=== PATIENT | male | born 1970 | race African-American/Black ===

== ENCOUNTER 2016-07-24 09:03 | Emergency (ER) | payer OTHER ==
--- NOTE | 2016-07-24 09:46 | ER Document Report ---
HPI - HPI Pain Level: 4 Context: 46 yo male punched door 2 weeks ago. c/o persistant pain and swelling over 5th knuckle Associated Symptoms: None Exacerbated by: Movement Relieved by: Denies Similar symptoms previously: No Recently seen / treated by doctor: No - ROS Systems Reviewed and Negative: Yes All other systems reviewed and negative - CARDIOVASCULAR Cardiovascular: DENIES: Chest pain - DERM Skin Color: Normal Past Medical History - General Information source: Patient - Social History Smoking Status: Current Every Day Smoker Chew tobacco use (# tins/day): No Frequency of alcohol use: None Drug Abuse: None Lives with: Family Family History: Reviewed & Not Pertinent Patient has suicidal ideation: No Patient has homicidal ideation: No Endocrine Medical History: Denies: Hx Diabetes Mellitus Type 1, Hx Diabetes Mellitus Type 2 Renal/ Medical History: Reports: Hx Peritoneal Dialysis Skin Medical History: Denies Hx MRSA Infectious Medical History: Denies: Hx MRSA - Immunizations Hx Diphtheria, Pertussis, Tetanus Vaccination: Yes - unknown Vertical Provider Document - CONSTITUTIONAL Agree With Documented VS: Yes Exam Limitations: No Limitations General Appearance: WD/WN, No Apparent Distress - INFECTION CONTROL TRAVEL OUTSIDE OF THE [place] IN LAST 30 DAYS: No - HEENT HEENT: Atraumatic, PERRLA - NECK Neck: Normal Inspection, Supple - RESPIRATORY Respiratory: Breath Sounds Normal, No Respiratory Distress O2 Sat by Pulse Oximetry: 98 - CARDIOVASCULAR Cardiovascular: Regular Rate, Regular Rhythm - MUSCULOSKELETAL/EXTREMETIES Musculoskeletal/Extremeties: Tender - focal tenderness and edema over right 5th MCPJ - NEURO Level of Consciousness: Awake, Alert, Appropriate - DERM Integumentary: Warm, Dry Course - Vital Signs Vital signs: Temp Pulse Resp BP Pulse Ox 98.2 F 74 16 164/90 H 98 07/24/16 09:07 07/24/16 09:07 07/24/16 09:07 07/24/16 09:07 07/24/16 09:07 Procedures - Immobilization right hand Pre-Proc Neuro Vasc Exam: Normal Immobilizer type: Other - boxer's splint Performed by: PCT Post-Proc Neuro Vasc Exam: Normal Alignment checked and good: Yes Discharge - Discharge Clinical Impression: Boxers fracture Qualifiers: Encounter type: initial encounter Fracture type: closed Qualified Code(s): S62.309A - Unspecified fracture of unspecified metacarpal bone, initial encounter for closed fracture Condition: Stable Disposition: HOME, SELF-CARE Instructions: Fractured Fifth Metacarpal ([facility]), Splint Pending Casting ([facility]), Sling to be Used ([facility]), Ice & Elevation ([facility]), Oral Narcotic Medication ([facility]) Additional Instructions: You have a fractured bone in your hand You need to see an orthopedist for further evaluation and treatment Keep splint intact until seen by orthopedist Pain med as needed Prescriptions: Hydrocodone/Acetaminophen [Bronson 5-325 mg Tablet] 1 tab PO Q4 PRN #15 tablet PRN Reason: Severe Pain Forms: Elevated Blood Pressure, Return to Work Referrals: JAYNE COTTO MD [ACTIVE STAFF] - Follow up as needed
--- NOTE | 2016-07-24 10:46 | RADIOLOGY REPORT (SQ) ---
EXAM DESCRIPTION: HAND RIGHT 3 VIEWS COMPLETED DATE/TIME: 07/24/2016 10:04 am REASON FOR STUDY: punched wall, pain COMPARISON: None. EXAM PARAMETERS: NUMBER OF VIEWS: Three views. TECHNIQUE: AP, lateral and oblique radiographic images acquired of the right hand. LIMITATIONS: None. FINDINGS: MINERALIZATION: Normal. BONES: Oblique fracture of the distal 5th metacarpal. There does appear to be early periosteal react ion and callus formation. JOINTS: No effusions. SOFT TISSUES: No soft tissue swelling. No foreign body. OTHER: No other significant finding. IMPRESSION: FRACTURE OF THE 5TH METACARPAL WITH SIGNS OF HEALING. TECHNICAL DOCUMENTATION: JOB ID: [id number] [employer]- All Rights Reserved
[2016-07-24 11:05] VITALS: BP 148/80
== END 2016-07-24 11:03 | disposition home or self-care (01) ==
LOC: ER 09:03
PROC: 2W3EX1Z Immobilization of Right Hand using Splint (ICD-10-PCS; principal; 2016-07-24)
DX: S62.309A Unspecified fracture of unspecified metacarpal bone, initial encounter for closed fracture (principal); M79.646 Pain in unspecified finger(s); M79.89 Other specified soft tissue disorders; W22.8XXA Striking against or struck by other objects, initial encounter; F17.200 Nicotine dependence, unspecified, uncomplicated
CPT/HCPCS: 99283